=== PATIENT | female | born 1970 | race Caucasian/White ===

== ENCOUNTER 2017-07-14 12:28 | Emergency (ER) | payer BC ==
[2017-07-14] MEDS: ASPIRIN 81 MG CHEW TABLET PO (13:00)
[2017-07-14 13:05] LABS: BASO % 0.4 % (0.0-1.0); EOS # 0.1 10^3/uL (0.0-0.50); EOS % 1.2 % (0.0-3.0); HEMATOCRIT 41.9 % (36.0-47.0); HEMOGLOBIN 14.1 g/dl (12.0-16.0); IMMATURE GRANULOCYTE % 0.4 % (0-3.0); LYMPH # 1.3 10^3/uL (1.5-4.5); LYMPH % 16.5 % (24.0-44.0); MEAN CORPUSCULAR HEMOGLOBIN 31.3 pg (27.0-33.0); MEAN CORPUSCULAR HGB CONC 33.7 g/dl (32.0-36.5); MEAN CORPUSCULAR VOLUME 92.9 fl (80.0-96.0); MONO # 0.7 10^3/uL (0.0-0.8); NEUTROPHILS # 5.6 10^3/uL (1.8-7.7); NEUTROPHILS % 72.5 % (36.0-66.0); PLATELET COUNT, AUTOMATED 201 10^3/uL (150-450); RED BLOOD COUNT 4.51 10^6/uL (4.00-5.40); RED CELL DISTRIBUTION WIDTH 12.9 % (11.5-14.5); WHITE BLOOD COUNT 7.8 10^3/uL (4.0-10.0)
[2017-07-14 13:16] LABS: INR 0.96; PROTHROMBIN TIME 12.9 SECONDS (12.4-14.5)
[2017-07-14] MEDS: NITROGLYCERIN 0.4 MG SUBL TABLET SL (13:28)
[2017-07-14 13:31] LABS: ALBUMIN 3.9 GM/DL (3.2-5.2); ALBUMIN/GLOBULIN RATIO 1.15 (1.00-1.93); ALKALINE PHOSPHATASE 70 U/L (45-117); ALT/SGPT 17 U/L (12-78); ANION GAP 8 MEQ/L (8-16); AST/SGOT 13 U/L (7-37); BILIRUBIN,DIRECT < 0.1 MG/DL (0.0-0.2); BILIRUBIN,TOTAL 0.3 MG/DL (0.2-1.0); BLOOD UREA NITROGEN 13 MG/DL (7-18); CALCIUM LEVEL 8.2 MG/DL (8.5-10.1); CARBON DIOXIDE LEVEL 25 MEQ/L (21-32); CHLORIDE LEVEL 108 MEQ/L (98-107); CPK CREATINE PHOSPHOKINASE 83 U/L (26-192); CREATININE FOR GFR 0.73 MG/DL (0.55-1.30); GLOMERULAR FILTRATION RATE > 60.0 (>58); GLUCOSE, FASTING 101 MG/DL (70-100); LIPASE 90 U/L (73-393); POTASSIUM SERUM 3.9 MEQ/L (3.5-5.1); SODIUM LEVEL 141 MEQ/L (136-145); TOTAL PROTEIN 7.3 GM/DL (6.4-8.2); TROPONIN I < 0.02 NG/ML (< 0.10)
[2017-07-14] MEDS ORDERED: ISOVUE-370 76% 100ML VIAL (Q9967) As Ordered (13:52)
[2017-07-14 18:39] LABS: CPK CREATINE PHOSPHOKINASE 71 U/L (26-192); TROPONIN I < 0.02 NG/ML (< 0.10)
== END 2017-07-15 05:07 | disposition home or self-care (01) ==
LOC: M ED 07-15 05:07
DX: R07.9 Chest pain, unspecified (principal); I42.8 Other cardiomyopathies; Z95.0 Presence of cardiac pacemaker; F17.200 Nicotine dependence, unspecified, uncomplicated; Z82.49 Family history of ischemic heart disease and other diseases of the circulatory system; Z79.899 Other long term (current) drug therapy
CPT/HCPCS: Q9967

== ENCOUNTER 2018-07-27 19:28 | Emergency (ER) | payer BC ==
[~2018-07-27] VITALS: Ht 167.6 cm; Wt 83.2 kg
[~2018-07-27 19:28] MED LIST: METO1TAB32 PO
[2018-07-27 20:05] LABS: BASO % 0.5 % (0.0-1.0); EOS # 0.2 10^3/uL (0.0-0.50); EOS % 1.9 % (0.0-3.0); HEMATOCRIT 39.1 % (36.0-47.0); HEMOGLOBIN 13.2 g/dl (12.0-15.5); LYMPH # 2.8 10^3/uL (1.5-4.5); LYMPH % 35.1 % (24.0-44.0); MEAN CORPUSCULAR HEMOGLOBIN 30.7 pg (27.0-33.0); MEAN CORPUSCULAR HGB CONC 33.8 g/dl (32.0-36.5); MEAN CORPUSCULAR VOLUME 90.9 fl (80.0-96.0); MONO # 0.5 10^3/uL (0.0-0.8); MONO % 5.9 % (0.0-5.0); NEUTROPHILS # 4.6 10^3/uL (1.8-7.7); NEUTROPHILS % 56.4 % (36.0-66.0); PLATELET COUNT, AUTOMATED 252 10^3/uL (150-450); WHITE BLOOD COUNT 8.1 10^3/uL (4.0-10.0)
[2018-07-27] MEDS ORDERED: MIRE1IUD IU (20:05)
[2018-07-27] MEDS ORDERED: CRES5TAB PO (20:05)
[2018-07-27] MEDS ORDERED: ASPI1TAB PO (20:05)
[2018-07-27 20:26] LABS: HCG, SERUM QUALITATIVE NEGATIVE (NEGATIVE)
[2018-07-27] MEDS ORDERED: ONDANSETRON 4MG/2ML VIAL (J2405) IV ONE (20:30)
[2018-07-27 20:42] LABS: ALBUMIN 3.9 GM/DL (3.2-5.2); ALT/SGPT 17 U/L (12-78); BILIRUBIN,DIRECT 0.1 MG/DL (0.0-0.2); BILIRUBIN,TOTAL 0.4 MG/DL (0.2-1.0); BLOOD UREA NITROGEN 10 MG/DL (7-18); CALCIUM LEVEL 8.5 MG/DL (8.5-10.1); CARBON DIOXIDE LEVEL 23 MEQ/L (21-32); CHLORIDE LEVEL 110 MEQ/L (98-107); CREATININE FOR GFR 0.62 MG/DL (0.55-1.30); GLOMERULAR FILTRATION RATE > 60.0 (>58); GLUCOSE, FASTING 83 MG/DL (70-100); LIPASE 84 U/L (73-393); POTASSIUM SERUM 3.8 MEQ/L (3.5-5.1); SODIUM LEVEL 141 MEQ/L (136-145); TOTAL PROTEIN 6.6 GM/DL (6.4-8.2)
[2018-07-27] MEDS ORDERED: MORPHINE 2 MG/ML 1ML SYRINGE (J2270) IV ONE (20:45)
[2018-07-27] MEDS ORDERED: NS 1,000 ML IV ONE (20:45)
[2018-07-27] MEDS ORDERED: KETOROLAC 30 MG/ML VIAL (J1885) IV ONE (21:00)
[2018-07-27] MEDS ORDERED: GI COCKTAIL 50ML BTL(HYOSCYAMINE/MAALOX/LIDOCAINE VISCOUS)(1:3:1) PO ONE (21:00)
[2018-07-27] MEDS ORDERED: NS 500 ML IV ONE (21:00)
[2018-07-27] MEDS ORDERED: PANTOPRAZOLE 40MG INJ (PROTONIX) (C9113) IV ONE (21:00)
[2018-07-27] MEDS ORDERED: ISOVUE-370 76% 100ML VIAL (Q9967) As Ordered ONE (21:19)
--- NOTE | 2018-07-27 21:53 | REPVR ---
EXAM: CT Angiography Chest With Contrast EXAM DATE/TIME: 07/27/2018 9:21 PM CLINICAL HISTORY: 47 years old, female; Pain; Angina pectoris; Additional info: Ap TECHNIQUE: Axial computed tomographic angiography images of the chest with intravenous contrast using CT angiography protocol. All CT scans at this facility use at least one of these dose optimization techniques: automated exposure control; mA and/or kV adjustment per patient size (includes targeted exams where dose is matched to clinical indication); or iterative reconstruction. Coronal and sagittal reformatted images were created and reviewed. MIP reconstructed images were created and reviewed. CONTRAST: Contrast Material: 75 ml of ISO 370; Contrast Route: IV COMPARISON: CT ANGIO CHEST 07/14/2017 1:52 PM FINDINGS: Pulmonary arteries: There is opacification of the pulmonary arteries with no evidence of pulmonary embolus. Aorta: There is opacification of the aorta which appears intact. Thyroid: Normal appearing thyroid. Pleural space: There is no evidence of pneumothorax. Heart: There is no evidence of pericardial effusion. The heart is normal in size. Lungs: There is a 5 CM by 3 CM bullous change of lung on the posterior aspect of the left side of the heart. Lungs otherwise clear. Lymph nodes: Unremarkable. No enlarged lymph nodes. Bones/joints: Mild anterior osteophyte formation of the thoracic spine. Soft tissues: Unremarkable. IMPRESSION: There is no evidence of pulmonary embolus. Electronically signed by: Mark Freeman On 07/27/2018 21:52:58 PM
--- NOTE | 2018-07-27 22:07 | REPVR ---
EXAM: CT Abdomen and Pelvis Without Contrast EXAM DATE/TIME: 07/27/2018 9:21 PM CLINICAL HISTORY: 47 years old, female; Pain; Abdominal pain; Additional info: L colic TECHNIQUE: Axial computed tomography images of the abdomen and pelvis without contrast. All CT scans at this facility use at least one of these dose optimization techniques: automated exposure control; mA and/or kV adjustment per patient size (includes targeted exams where dose is matched to clinical indication); or iterative reconstruction. Coronal and sagittal reformatted images were created and reviewed. COMPARISON: CR Pelvis, complete 03/02/2012 12:25 AM FINDINGS: Tubes, catheters and devices: A pacemaker lead is present. 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 The lung bases are otherwise clear. The heart is normal in size and there is no pericardial effusion. ABDOMEN: Liver: Normal liver. Gallbladder and bile ducts: Normal. No calcified stones. No ductal dilation. Pancreas: Normal sized pancreas. Spleen: Normal spleen. Adrenals: Normal adrenal glands. Kidneys and ureters: There is no evidence of a calcified stone right or left kidney. Stomach and bowel: Normal. No obstruction. No mucosal thickening. There are scattered diverticula with no evidence of diverticulitis. Appendix: Normal appearing appendix. PELVIS: Bladder: Normal urinary bladder. Reproductive: There is a small cyst left ovary. An IUD is noted in the uterus. ABDOMEN and PELVIS: Intraperitoneal space: There is no evidence of pneumoperitoneum. There is no evidence of free fluid in the abdomen or the pelvis. Bones/joints: No acute fracture. No dislocation. Soft tissues: Unremarkable. Vasculature: The aorta is normal in size. Lymph nodes: There are scattered small mesenteric lymph nodes. IMPRESSION: 1. No evidence of bowel obstruction. 2. No evidence of inflammation. Electronically signed by: Mark Freeman On 07/27/2018 22:07:20 PM
[2018-07-27 22:26] LABS: CK-MB VALUE MASS < 1.0 NG/ML (<3.6); CPK CREATINE PHOSPHOKINASE 110 U/L (26-192); MB/CK RELATIVE INDEX 0.91 (< OR =4); TROPONIN I < 0.02 NG/ML (< 0.10)
[2018-07-27] MEDS ORDERED: PROT1TAB2 PO (22:45)
[2018-07-27] MEDS ORDERED: CARA1TAB6 PO (22:45)
[2018-07-27 23:11] VITALS: BP 104/58
--- NOTE | 2018-07-28 06:30 | ECGEPIP ---
Stationary ECG Study [facility] - ED Test Date: 2018-07-27 Pat Name: SALMA BROOKS Department: Room: - Gender: F Hospital Nursing Assistant: : 1970 Requested By: ANCELMO JAMISON Order Number: [id number] Reading MD: Katie Limon Measurements Intervals [place] Rate: 69 P: 58 TX: 156 QRS: 68 QRSD: 93 T: 59 QT: 401 QTc: 430 Interpretive Statements SINUS RHYTHM WITH FREQUENT VENTRICULAR PREMATURE COMPLEXES ABNORMAL RHYTHM ECG NONSPECIFIC ST T WAVE CHANGES LOW QRS VOLTAGE LIMB LEADS 07/14/17 INCREASED ECTOPY RATE DECREASED Electronically Signed On 07-28-2018 6:29:50 EST by Katie Limon
== END 2018-07-27 23:19 | disposition home or self-care (01) ==
LOC: M ED 19:28 → EDBD 19:28 → M ED 23:19
DX: K21.9 Gastro-esophageal reflux disease without esophagitis (principal); I10 Essential (primary) hypertension; E78.5 Hyperlipidemia, unspecified; I49.9 Cardiac arrhythmia, unspecified; Z95.0 Presence of cardiac pacemaker; Z79.899 Other long term (current) drug therapy; Z79.82 Long term (current) use of aspirin; Z97.5 Presence of (intrauterine) contraceptive device; F17.210 Nicotine dependence, cigarettes, uncomplicated
CPT/HCPCS: 36415; 71275; 74176; 80048; 80076; 81001; 82550; 82553; 83690; 84484; 84703; 85025; 93005; 93041; 96361; 96374; 96375; 99285; C9113; J1885; J2270; J2405; Q9967

== ENCOUNTER → 2019-06-02 | Outpatient (REF) | payer BC, OTHER ==
[~2019-06-02] MED LIST changes: +ASPI81TA26 PO; +CARA1TAB6 PO; +CRES5TAB PO; +MIRE1IUD IU; +PROT1TAB2 PO
== END ==
LOC: M SFHCWAGY 11:45
PROVIDERS: ATTEND Advanced Practice Midwife
DX: Z12.4 Encounter for screening for malignant neoplasm of cervix (principal)
CPT/HCPCS: 87624; G0123

== ENCOUNTER → 2019-07-02 | Outpatient (CLI) | payer BC, OTHER ==
--- NOTE | 2019-07-02 08:08 | REP ---
BILATERAL SCREENING DIGITAL MAMMOGRAM WITH 3D TOMOSYNTHESIS: There are no palpable abnormalities or other breast complaints. The the patient states she had a clinical breast examination the May,. [facility]: 7.[facility]% . Baseline examination, there are no comparisons. The breasts are heterogeneously dense, which could obscure small masses. There is a collection of tiny calcifications posteriorly in the right breast. No masses or nodules are identified. Category 0 mammogram. Incomplete. Need additional imaging evaluation and / or prior mammograms for comparison. The There are no additional findings on 3D tomosynthesiss. Impression: BIRADS/ACR category 0 mammogram. Incomplete. Need additional imaging evaluation and / or prior mammograms for comparison. Recommendation: Recommend the patient return for spot magnification views of the right breast to confirm these small calcifications. Because of the increased breast density, annual adjunctive breast MRI in addition to screening mammography is recommended. These can be performed at alternating six month intervals. This mammogram was interpreted with the aid of a FDA approved computer-aided detection system. A. Negative mammogram reports should not delay biopsy if a dominant or clinically suspicious mass is present. B. Not all breast cancers are identified by mammography or tomosynthesis. C. Adenosis and dense breasts may obscure an underlying neoplasm. Patient letter M0 dense breasts. Electronically Signed by Gus Guzman MD 07/02/2019 08:00 A
== END ==
LOC: M WHC 06:46
PROVIDERS: ATTEND Advanced Practice Midwife
DX: Z12.31 Encounter for screening mammogram for malignant neoplasm of breast (principal); R92.2 Inconclusive mammogram

== ENCOUNTER → 2019-07-14 | Outpatient (CLI) | payer OTHER ==
--- NOTE | 2019-07-14 11:57 | REP ---
Digital diagnostic unilateral right breast mammography with CAD and focused right breast sonography: History: Screening mammography from July 02, 2019 was BIRADS category 0 because of some possible microcalcifications. A diagnostic study was recommended. Mammographic findings: Magnified focal spot compression CC, MLO, and true mediolateral views are obtained. These confirm the presence of six to seven microcalcifications of different shapes projecting superiorly in the right breast at approximately 12 o'clock position. These must be regarded as somewhat suspicious. Anterior and a little superior to these microcalcifications, there is a 11 mm fairly well circumscribed oval-shaped nodule. Accordingly, sonography was carried out. Sonographic findings: Sonographically, in the right breast at 12 o'clock 2 cm from the nipple there is a 10 x 8 x 7 mm hypoechoic solid appearing slightly irregular nodule. Its long axis is parallel to the skin. There is a well defined back wall and some images show enhanced through transmission. This is most likely a benign fibroadenoma however it is nonspecific. Impression: BIRADS 4: BI-RADS/ACR category 4 mammogram. Suspicious Abnormality - biopsy should be considered. BIRADS category 4 suspicious right breast imaging. Stereotactic needle biopsy is recommended for two targets in the right breast. These include a grouping of polymorphic and linear microcalcifications at approximately 12 o'clock as well as an adjacent 11 mm soft tissue nodule. The soft tissue nodule could be biopsied under ultrasound guidance if it is not well seen stereotactically. This mammogram was interpreted with the aid of an FDA-approved computer-aided detection system. The patient letter being requested is m4 dense. This patient's estimated Tyrer-Cuzick lifetime risk assessment for the breast cancer is 7.9 %.
== END ==
LOC: M WHC 09:04
PROVIDERS: ATTEND Advanced Practice Midwife
DX: Z12.31 Encounter for screening mammogram for malignant neoplasm of breast (principal)

== ENCOUNTER → 2019-07-29 | Outpatient (CLI) | payer MEDICAID, OTHER, SELFPAY ==
[2019-07-29 14:44] VITALS: BP 120/70
--- NOTE | 2019-07-29 16:15 | REP ---
Specimen radiography right breast: Three views. History: Stereotactic needle biopsy for microcalcifications right breast. Comparison mammography July 14, 2019. Findings: Specimen radiography demonstrates numerous microcalcifications throughout most of the removed specimens. Impression: Specimen radiography demonstrates microcalcifications from the target grouping. Electronically Signed by Adam Mahoney MD 07/29/2019 05:11 P
--- NOTE | 2019-07-29 16:47 | REP ---
Digital diagnostic unilateral right breast mammography with CAD: History: Needle biopsy marker clip views. The patient status post stereotactic needle biopsy procedure for two targets in the right breast. Comparison mammography July 14, 2019. Findings: Two marker clips are visible in the right superior breast. These appear in good position relative to the location of the targets. Neither of the targets is visible on the post biopsy images. Impression: Two marker clips in good position.
--- NOTE | 2019-07-30 18:25 | ROOPDOC ---
[facility] Report Of Operation Report of Operation DATE OF PROCEDURE: 07/29/19 PREPROCEDURE DIAGNOSES: Suspicious Right breast calcifications and the right breast nodule POSTPROCEDURE DIAGNOSES: Suspicious Right breast calcifications of the right breast nodule PROCEDURE: Stereotactic biopsy of suspicious right breast calcifications and right breast nodule SURGEON: Chantale Hernadez DRY TRANSFER WORKER: ANESTHESIA: Local ESTIMATED BLOOD LOSS: Minimal COMPLICATIONS: None REMARKS: Postbiopsy clips are in good location DESCRIPTION OF PROCEDURE: Lidocaine 1% LOT CLC [id number] Expiration 06/2020 Sodium Bicarbonate 8.4% LOT [id number] Expiration 07/2020 Hydromark clip LOT [id number] Expiration 11/2020 REF 3316-44-00-T1 titanium shaped 1 (closed Spring) CALCS BX ( sample 1) Hydromark clip LOT [id number] Expiration 07/2021 REF 6393-00-90-T3 titanium shaped 3 NODULE BX ( sample 2) Bx device: Stereotactic Mammotome Revolve Dual Vacuum- assisted Biopsy System 10 G LOT [id number] Expiration 05/2022 REF [id number] CALCS BX ( sample 1) Bx device: Stereotactic Mammotome Revolve Dual Vacuum- assisted Biopsy System 10 G LOT [id number] Expiration 05/2022 REF [id number] NODULE BX ( sample 2) Informed consent was obtained in the preop area for stereotactic biopsy of right breast calcifications and possible biopsy of right breast nodule if it is visible in the same area. The most common risk and possible complications including bleeding, hematoma, bruising, infection, injury to surrounding structures were explained to the patient and she expressed understanding. Patient was taken to the procedure room and placed prone on the [employer] [facility] Breast Biopsy table with the right breast hanging through the table aperture. Right breast was placed into Medio-Lateral compression and Edge Bonder jumana images were taken. Suspicious calcifications were identified on the jumana images and target was set. At this time, since we were able to confirm visibility of the suspicious calcifications and patient tolerated prone positioning allowing to proceed with the biopsy, appropriate time out was done stating patients name, date of , and the procedure to be performed. The right breast in ML compression was prepped in the usual fashion. Plain Lidocaine 1% and 8.4% sodium bicarbonate 10:1 mix was used to numb the skin, the biopsy site and tissues along the anticipated biopsy tract. Small skin incision was made with blade number 11. Mammotome 10 G stereotactic breast biopsy device was inserted through the incision and advanced to the previously set coordinates marking the target lesion. Pre-fire imaging was taken to assure appropriate positioning. At this time, Mammotome 10 G breast biopsy device was fired and vacuum assisted biopsies were collected. The biopsy samples were investigated with Faxitron Imaging system and calcifications were observed. Biopsy samples were then placed in the formaldehyde, marked with patients name and right breast biopsy site #1, and sent to pathology for evaluation. Hydromark clip SHAPE 1 was placed into the Mammotome biopsy device channel and deployed. Post-deployment imaging was done to assure appropriate clip deployment. Clip was noted in the right breast. Since patient was able to tolerate procedure well for biopsy of calcifications well and wished to proceed with the biopsy of the right breast nodule, another jumana atomic physics professor view was obtained keeping the same ML compression. The suspicious nodule was identified and the new target was set. Plain Lidocaine 1% and 8.4% sodium bicarbonate 10:1 mix was used again to numb the skin, the biopsy site and tissues along the anticipated biopsy tract at the new target. Small skin incision was made with blade number 11. Mammotome 10 G stereotactic breast biopsy device was inserted through the incision and advanced to the previously set coordinates marking the target lesion. Pre-fire imaging was taken to assure appropriate positioning. At this time, Mammotome 10 G breast biopsy device was fired and vacuum assisted biopsies were collected. The biopsy samples were investigated with Faxitron Imaging system and there were no calcifications were observed. Biopsy samples were then placed in the formaldehyde, marked with patients name and right breast biopsy site #2, and sent to pathology for evaluation. Hydromark clip SHAPE 3 was placed into the Mammotome biopsy device channel and deployed. Post-deployment imaging was done to assure appropriate clip deployment. Clip was noted in the right breast. At this point, paddle ML compression of the right breast was released and manual pressure was held to decrease harmonic effect and to assure hemostasis. No bleeding was noted upon removal of the pressure. Patient was slowly repositioned and placed into sitting position, and then assisted off the table. Post-biopsy mammogram of the right breast was obtained and showed clips in expected position. Both mammographic targets seen on previous mammogram, were not visible on post biopsy mammogram. Postprocedural dressing was placed. Patient tolerated procedure well and was taken to the recovery unit in stable condition. Discharge instructions were discussed with the patient and she expressed understanding. CHANTALE HERNADEZ DO Jul 30, 2019 18:25
== END ==
LOC: M WHCPRO 12:27
PROVIDERS: ATTEND Surgery
DX: R92.1 Mammographic calcification found on diagnostic imaging of breast (principal)

== ENCOUNTER → 2020-08-18 | Outpatient (CLI) | payer OTHER ==
[2020-08-18 12:33] LABS: FREE T4 0.89 NG/DL (0.76-1.46); THYROID STIMULATING HORMONE 2.45 uIU/ML (0.358-3.740)
== END ==
LOC: M LAB 10:31
PROVIDERS: ATTEND Dermatology
DX: L80 Vitiligo (principal)

== ENCOUNTER → 2020-12-09 | Outpatient (CLI) | payer OTHER | LOC: M WHC 14:38 | PROVIDERS: ATTEND Advanced Practice Midwife | DX: Z12.31 Encounter for screening mammogram for malignant neoplasm of breast (principal) ==

== ENCOUNTER → 2020-12-09 | Outpatient (REF) | payer OTHER | LOC: M SFHCWAGY 18:24 | PROVIDERS: ATTEND Advanced Practice Midwife | DX: Z12.4 Encounter for screening for malignant neoplasm of cervix (principal) ==

== ENCOUNTER → 2021-02-20 | Outpatient (CLI) | payer OTHER ==
--- NOTE | 2021-02-20 09:20 | REP ---
INDICATION: BREAST CANCER SCREEN BY MAMMO. COMPARISON: Multiple TECHNIQUE: Digital screening mammography was carried out bilaterally in the CC and MLO projections using both 2D and 3D modalities and compared to the prior exams. By history, the patient has no complaints of a palpable breast abnormality or other significant breast complaints. FINDINGS: The breasts are unchanged in size and shape. Once again, scattered dense heterogenous fibroglandular elements are seen bilaterally. In the left breast retroareolar inner aspect near the 9 o'clock position there is a potential lianna density. No other suspicious features are seen in either breast. There are no suspicious calcifications. There is no internal architectural distortion. There is no skin thickening or nipple retraction. The Volpara volumetric breast density pattern is b. IMPRESSION: BIRADS/ACR category 0 mammogram. There is a potential lianna density seen in the left breast as described above for which diagnostic digital DBT spot compression views are recommended in the CC and MLO projections along with ultrasonography if indicated. This patient's Tyrer-Cuzick lifetime breast cancer risk assessment score is 7.6%. This mammogram was interpreted with the aid of an FDA-approved computer-aided detection system. The patient states she had a clinical breast exam in November 2020. The patient letter being requested is M0. RECOMMENDATION: As above <Electronically signed by Sukhdeep Sinha > 02/20/21 [id number]
== END ==
LOC: M WHC 08:20
PROVIDERS: ATTEND Advanced Practice Midwife
DX: R92.2 Inconclusive mammogram (principal)

== ENCOUNTER → 2021-04-03 | Outpatient (CLI) | payer OTHER ==
--- NOTE | 2021-04-03 10:47 | REP ---
INDICATION: LEFT BREAST ADD VIEWS. COMPARISON: 02/20/2021, 07/02/2019. TECHNIQUE: Spot-compression tomographic images obtained of the left breast. Focused left breast ultrasound. FINDINGS: A smoothly marginated oval nodule is confirmed in the medial left breast approximately 3 cm from the nipple. Focused left breast ultrasound in this region demonstrates an oval simple cyst 7 x 4 x 4 mm with average KP a value 14.5 with elastography interrogation. Two other adjacent hypoechoic nodules are seen, 6 x 3 x 6 mm with average KP a value 22.4, and 5 x 3 x 5 mm, with average KP a value 29.4. IMPRESSION: BIRADS/ACR category 4, suspicious. In the anteromedial left breast at the site of a smoothly marginated nodule seen on mammography, there is a simple cyst present, however, there are 2 hypoechoic nodules representing solid or complex cystic nodules. Recommend ultrasound-guided biopsy of these 2 hypoechoic nodules. This mammogram was interpreted with the aid of an FDA-approved computer-aided detection system. The patient letter being requested is M4. RECOMMENDATION: Recommend ultrasound-guided biopsy left breast as discussed in detail above. <Electronically signed by Gus Lino > 04/03/21 [id number]
== END ==
LOC: M WHC 08:34
PROVIDERS: ATTEND Advanced Practice Midwife
DX: R92.8 Other abnormal and inconclusive findings on diagnostic imaging of breast (principal)
CPT/HCPCS: 76642; 77065; G0279

== ENCOUNTER → 2021-04-11 | Outpatient (CLI) | payer OTHER ==
[2021-04-11 14:21] VITALS: BP 108/80
--- NOTE | 2021-04-11 18:14 | REP ---
INDICATION: U/S GUIDED LEFT X2 BX ABNORMAL MAMMO LEFT BREAST. COMPARISON: None. TECHNIQUE: The procedure was performed by YOLANDA Whalen, under the direct supervision of Dr. Sanchez. The risks and benefits of the procedure were explained to the patient and an informed consent was obtained both verbally and written. Directly prior to the start of the procedure a formal time-out was completed in the procedure room. FINDINGS: The left breast retroareolar superior cystic structure was localized using ultrasound guidance. The skin was prepped and draped in a sterile fashion. Ten mL of buffered lidocaine was used as a local anesthetic. Using ultrasound guidance a 14 gauge mammotome vacuum assisted needle biopsy system was inserted and advanced into the left breast retroareolar superior cystic structure. Six core biopsy specimens were obtained. A marker clip shaped 3 was placed at the biopsy site. The left breast inferior mass was localized using ultrasound guidance.. The skin was prepped and draped in a sterile fashion. Ten mL of buffered lidocaine was used as a local anesthetic. Using ultrasound guidance a 14 gauge mammotome vacuum assisted needle biopsy system was inserted and advanced into the left breast inferior mass. Six core biopsy specimens were obtained. A marker clip shaped 4 was placed at the biopsy site. The patient tolerated the procedure well and there were no immediate complications. After the appropriate amount of monitored convalescence the patient was discharged from the department. IMPRESSION: Ultrasound-guided biopsy and micro clip placement of left breast x2. <Electronically signed by Lenore Lee > 04/11/21 1641 <Electronically signed by Luis Sanchez > 04/11/21 1819
--- NOTE | 2021-04-12 16:15 | REP ---
INDICATION: U/S GUIDED LEFT X2 BX ABNORMAL MAMMO LEFT BREAST. COMPARISON: Diagnostic left mammogram and left breast ultrasound, 04/03/2021. TECHNIQUE: 2D and 3D cc and MLO views of the left breast were obtained following ultrasound-guided biopsy x2. FINDINGS: There are 2 biopsy clips in the left breast corresponding to the suspicious nodules seen at ultrasound. The Volpara volumetric breast density pattern is b, there are scattered areas of fibroglandular density.. IMPRESSION: BIRADS/ACR : 2: Benign finding. The patient letter being requested is M2. RECOMMENDATION: Repeat screening mammography recommended 1 year (for women over 40). <Electronically signed by Luis Sanchez > 04/12/21 [id number]
== END ==
LOC: M WHCPRO 10:34
PROVIDERS: ATTEND Surgery
DX: D24.2 Benign neoplasm of left breast (principal)
CPT/HCPCS: 19083; 19084; 77065; 88305; G0279

== ENCOUNTER → 2021-09-25 | Outpatient (CLI) | payer OTHER | LOC: M WHC 07:51 | PROVIDERS: ATTEND Nurse Practitioner Women's Health | DX: R92.8 Other abnormal and inconclusive findings on diagnostic imaging of breast (principal) | CPT/HCPCS: 76642; 77065; G0279 ==

== ENCOUNTER → 2022-08-21 | Outpatient (CLI) | payer BC, MEDICAID | LOC: M WHC 13:24 | PROVIDERS: ATTEND Advanced Practice Midwife | DX: Z12.31 Encounter for screening mammogram for malignant neoplasm of breast (principal) ==

== ENCOUNTER → 2023-08-26 | Outpatient (CLI) | payer BC | LOC: M WHC 08:19 | PROVIDERS: ATTEND Advanced Practice Midwife | DX: Z12.31 Encounter for screening mammogram for malignant neoplasm of breast (principal) ==

== ENCOUNTER → 2023-08-26 | Outpatient (REF) | payer BC | LOC: M PLALAB 09:10 | PROVIDERS: ATTEND Advanced Practice Midwife | DX: Z12.4 Encounter for screening for malignant neoplasm of cervix (principal) ==

== ENCOUNTER → 2023-10-09 | Outpatient (CLI) | payer BC | LOC: M WHC 07:50 | PROVIDERS: ATTEND Advanced Practice Midwife | DX: Z12.31 Encounter for screening mammogram for malignant neoplasm of breast (principal) ==

== ENCOUNTER → 2025-04-19 | Outpatient (REF) | payer BC ==
[2025-04-21 14:17] LABS: HPV APTIMA Not Detected (Not Detected)
== END ==
LOC: M SFHCWAGY 13:25
PROVIDERS: ATTEND Advanced Practice Midwife
DX: Z01.419 Encounter for gynecological examination (general) (routine) without abnormal findings (principal); Z77.9 Other contact with and (suspected) exposures hazardous to health
CPT/HCPCS: 87624; G0123

== ENCOUNTER → 2025-04-19 | Outpatient (CLI) | payer BC | LOC: M WHC 08:12 | PROVIDERS: ATTEND Advanced Practice Midwife | DX: Z12.31 Encounter for screening mammogram for malignant neoplasm of breast (principal); Z12.4 Encounter for screening for malignant neoplasm of cervix | CPT/HCPCS: 77063; 77067; 87624; G0123 ==